=== PATIENT | male | born 1970 | race Caucasian/White ===

== ENCOUNTER → 2022-02-08 13:32 | Outpatient (BNVA) | payer SELFPAY | PROVIDERS: Visit Provider Physician Assistant Medical | DX: Z02.79 Encounter for issue of other medical certificate (principal) ==

== ENCOUNTER 2022-06-18 23:44 | Inpatient (IN) | payer MEDICAID, SELFPAY ==
--- NOTE | ~2022-06-18 | CT_ITS ---
EXAMINATION: CT ANGIOGRAM HEAD AND NECK CLINICAL INFORMATION: Near hanging. Rule out dissection. COMPARISON: None TECHNIQUE: Test bolus sequences followed by intravenous administration 70 mL of Omnipaque 350 intravenous contrast. Helical imaging was performed in the axial plane from the mediastinum to the skull vertex. Delayed postcontrast imaging of the head was also performed. The data was processed at the hematology technologist's workstation for generation of MIP sequences. Three-dimensional volume rendered reformatted images were also generated at an offline 3-D workstation. This CT examination was performed using dose optimization techniques as appropriate, variously including the following: *Automated exposure control *Adjustment of mA and/or kV according to patient size (this includes techniques or standardized protocols for targeted exams where dose is matched to indication/reason for exam; i.e. extremities or head) *Use of iterative reconstruction technique The degree of stenosis determined by NASCET criteria. DLP: 2779 mGy-cm FINDINGS: BONES, SOFT TISSUES AND LUNG APICES: No cervical spine fracture or traumatic malalignment. 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 No obvious epidural or paraspinal hematoma. Moderate bronchial thickening without bronchiectasis. Paraspinal soft tissues unremarkable. CTA NECK: The aortic arch has a classic configuration and the major arch vessel origins are non-stenotic. The vertebral arteries are co-dominant and both vertebral origins are widely patent. Both common carotid arteries are normal in course and caliber. Both internal carotid arteries demonstrate minimal atherosclerotic plaque without significant stenosis. CTA HEAD: There is normal opacification of the major intracranial vessels. No acute proximal large vessel occlusion, focal flow-limiting stenosis, or saccular intracranial aneurysm is identified. No abnormal parenchymal enhancement or regional oligemia is visualized. HEAD (delayed): No intracranial mass, intercerebral edema, hemorrhage, or midline shift is evident. The ventricles and sulci are stable in size and configuration. No extra-axial collections are appreciated. No pathologic intracranial enhancement. Dural sinuses are patent. The paranasal sinuses are well-aerated and clear. CT/CT angio head neck IMPRESSION: * No evidence of dissection. * No occlusion or hemodynamically significant stenosis within the extracranial or intracranial arterial vasculature.
[2022-06-18 23:57] VITALS: BP 127/79; PULSE 85; RESP 16; TEMP 36.6; O2SAT 96; BMI 31.6
--- NOTE | 2022-06-19 00:20 | ED.PSYCH ---
HPI - Psych General Chief Complaint: Psychiatric Symptoms Stated Complaint: SI,CARBAJAL ON NECK,FOUND ON FLOOR BY PER EMS Time Seen by Provider: 06/18/22 23:51 Source: patient and EMS Mode of arrival: EMS Limitations: no limitations History of Present Illness HPI Narrative: 51-year-old male brought to emergency department for evaluation of a near hanging event that occurred at home. At the time my evaluation, the patient denies being suicidal and he denies that he attempted to hang himself. I reviewed the external record: Section 12 and the following information was noted ?Alberto was found unconscious with a rope around his neck held to the rafters, by his girlfriend. Alberto's girlfriend removed the rope and called 911. ? The patient told me that he was was drinking in his basement bar . He had 4-5 beers to drink. He then states the fell asleep on the bar. When he woke up he was on the floor surrounded by paramedics and police. Related Data Home Medications Medication Instructions Recorded Confirmed No Known Home Meds 06/19/22 06/19/22 Allergies Allergy/AdvReac Type Severity Reaction Status Date / Time No Known Allergies Allergy Unverified 03/05/20 15:03 [No Known Allergies*] Review of Systems Review of Systems: Yes all other systems are reviewed and are negative [facility] Social History Social History Advance Directives: No Physical Exam Vital Signs: Vital Signs: Last Vital Signs Temp 97.9 F 06/18/22 23:57 Pulse 85 06/18/22 23:57 Resp 16 06/18/22 23:57 BP 127/79 06/18/22 23:57 Pulse Ox 96 06/18/22 23:57 O2 Del Method 06/18/22 23:57 BMI result Body Mass Index 31.6 Const: General: cooperative and no acute distress Orientation/consciousness: oriented to person and oriented to place Limitations: no limitations HEENT: Head: Yes normal to inspection, Yes normocephalic and Yes atraumatic Ears: external ears normal General nose exam: Normal external nose present Face and sinus: Yes normal facial exam Mouth: Normal oral and palatal mucosa present Throat: Yes posterior oropharynx normal Eyes: General: appearance normal, both eyes and all related structures Pupils: Equal, round and reactive pupils present Neck: Other: The patient has ligature/rope burn carbajal on his neck, these areas are tender to palpation. His trachea is midline and nontender. There is no stridor with auscultation of his neck. Carotid artery pulse is bilaterally symmetric. Patient's voice is normal. Chest: Chest palpation & inspection: normal inspection of the chest and normal palpation of entire chest wall Resp: Effort & Inspection: normal respiratory effort and able to speak in complete sentences Auscultation: clear to auscultation bilaterally Cardio: Rate: regular rate Rhythm: regular rhythm Heart sounds: S1 normal heart sound present, S2 normal heart sound present and no murmurs GI: Inspection: Yes normal to inspection Palpation (GI): Soft to palpation, nontender and no guarding Auscultation: normal bowel sounds : General: Yes no CVA tenderness Back/Spine/Pelvis: Back: no CVA tenderness Skin: General skin exam: no rashes or lesions noted Neuro: General: oriented to person and oriented to place Cranial nerves: Yes CN's II-XII intact bilaterally and Yes Equal, round and reactive pupils present Cognition (Neuro): normal cognition Motor exam (neuro): 5/5 motor strength present throughout Extrem: General: Yes normal to inspection Psych: Appearance: grossly normal Speech and movement: Normal speech and movement present Affect: normal affect Attitude: cooperative Thought process: Normal thought process present Thought content: Normal thought content present Medications Administered Discontinued Medications Generic Name Dose Route Start Last Admin Trade Name Gautamq PRN Reason Stop Dose Admin Iohexol 70 ml 06/19/22 02:45 06/19/22 02:46 Iohexol 350 Mg/Ml 100 Ml Infus..Btl IV 06/19/22 02:46 70 ml ONCE ONE Administration Medical Decision Making Medical Decision Making [facility] Narrative: 51-year-old male who was brought to emergency department by EMS for near hanging that occurred in his basement. The patient was found unresponsive on his basement floor with a rope around his neck tied to the rafters. The patient was found by his girlfriend. Patient was placed on a Section 12 and transported to the emergency department. At the time my evaluation the patient denies that he tried to kill himself and denies that he tried to hang himself. Patient's physical examination however is very concerning since he has clear ligature carbajal on his neck which are consistent with rope finch. His exam is otherwise unremarkable. Given the fact that this is a near hanging I will obtain a CT scan of the patient's head and cervical spine as well as CT angiogram of the patient's neck to rule out dissection of the carotid and vertebral arteries. Laboratory evaluation including CBC, CMP, salicylate, Tylenol, alcohol, magnesium, PT/INR, PTT, urinalysis and urine drug screen will be obtained. Patient is currently on a Section 12 and this will remain until he can be evaluated by our crisis care team. 0416: Start physician observation: Patient's laboratory evaluation was unremarkable except for an alcohol level of 69. COVID-[address] angiogram of the head and neck revealed no dissections and no bony abnormalities. The patient is medically cleared for psychiatric evaluation. The patient does have significant evidence for a suicide attempt by hanging given the ligature carbjaal on his neck. Patient will be kept in the Behavioral Health Unit until he is evaluated by our care team. 0700: Physician observation continued: Patient has remained stable in the emergency department Behavioral Health Unit. At the end of my shift, the patient's care was turned over to my colleague, Dr. Gilliam. Differential Diagnosis Depression, anxiety, suicidal ideation near hanging, laryngeal injury, carotid dissection, vertebral dissection, overdose, alcohol intoxication Lab Data Result Diagrams: 06/19/22 03:20 06/19/22 03:20 Labs: Lab Results 06/19/22 06/19/22 06/19/22 Range/Units 00:10 00:11 00:11 WBC (4.8-10.8) X10*3/uL RBC (4.60-5.80) X10*6/uL Hgb (14.0-18.0) g/dl Hct (42.0-52.0) % MCV (80.0-98.0) fL MCH (27.0-33.0) pg MCHC (31.0-36.0) g/dl RDW (11.0-16.0) % Plt Count (160-400) X10*3/uL MPV (9.4-12.4) fL Immature Gran % (Auto) (0.0-0.4) % Neut % (Auto) (45-73) % Lymph % (Auto) (20-40) % [place] % (Auto) (2-11) % Eos % (Auto) (0-4) % Baso % (Auto) (0-2) % Lymph # (Auto) (1.2-4.9) X10*3/uL [place] # (Auto) (0.1-1.2) X10*3/uL Eos # (Auto) (0.0-0.4) X10*3/uL Baso # (Auto) (0.0-0.2) X10*3/uL Abs Immat Gran (auto) (0.00-0.03) X10*3/uL Absolute Neuts (auto) (2.0-8.3) x10*3/uL Absolute Nucleated RBC (0.0-0.012) X10*3/uL Nucleated RBC % (auto) (0.0-0.2) /100WBC PT (10.0-13.1) SEC INR (0.9-1.1) APTT (26.0-36.4) SEC Sodium (135-145) mmol/L Potassium (3.3-5.1) mmol/L Chloride (96-108) mmol/L Carbon Dioxide (22-29) mmol/L Anion Gap (12-20) BUN (9-16) mg/dL Creatinine (0.5-1.4) mg/dL Estim Creat Clear Calc Estimated GFR Random Glucose (60-115) mg/dL Calcium (8.4-10.2) mg/dL Magnesium (1.6-2.6) mg/dL Total Bilirubin (0.0-1.0) mg/dL AST (5-37) U/L ALT (0-40) U/L Alkaline Phosphatase (39-117) U/L Total Protein (6.5-8.0) g/dL Albumin (3.5-5.0) g/dL Urine Color Yellow Urine Appearance Clear Urine pH 5.5 (5.0-9.0) Ur Specific [place] <= 1.005 (1.005-1.025) Urine Protein Negative (Neg-Trace) mg/dL Urine Glucose (UA) Negative (Negative) mg/dL Urine Ketones Negative (Negative) mg/dL Urine Blood Negative (Negative) Urine Nitrite Negative (Negative) Ur Leukocyte Esterase Negative (Negative) Salicylates (15-30) mg/dL Urine Opiates Screen Not Detected (Not Detect) Urine Fentanyl Screen Not Detected (Not Detect) Acetaminophen (<30) mcg/mL Ur Barbiturates Screen Not Detected (Not Detect) Ur Phencyclidine Scrn Not Detected (Not Detect) Ur Amphetamines Screen Not Detected (Not Detect) U Benzodiazepines Scrn Not Detected (Not Detect) Urine Cocaine Screen Not Detected (Not Detect) U Marijuana (THC) Screen Not Detected (Not Detect) Ethyl Alcohol mg/dL COVID-19 (TRAY) Negative (Negative) COVID-19 Clin Com See Note 06/19/22 06/19/22 06/19/22 Range/Units 03:20 03:20 03:20 WBC 6.2 (4.8-10.8) X10*3/uL RBC 4.59 L (4.60-5.80) X10*6/uL Hgb 15.3 (14.0-18.0) g/dl Hct 42.7 (42.0-52.0) % MCV 93.0 (80.0-98.0) fL MCH 33.3 H (27.0-33.0) pg MCHC 35.8 (31.0-36.0) g/dl RDW 11.9 (11.0-16.0) % Plt Count 195 (160-400) X10*3/uL MPV 8.7 L (9.4-12.4) fL Immature Gran % (Auto) 0.3 (0.0-0.4) % Neut % (Auto) 49.0 (45-73) % Lymph % (Auto) 42.0 H (20-40) % [place] % (Auto) 7.0 (2-11) % Eos % (Auto) 1.5 (0-4) % Baso % (Auto) 0.2 (0-2) % Lymph # (Auto) 2.6 (1.2-4.9) X10*3/uL [place] # (Auto) 0.4 (0.1-1.2) X10*3/uL Eos # (Auto) 0.1 (0.0-0.4) X10*3/uL Baso # (Auto) 0.0 (0.0-0.2) X10*3/uL Abs Immat Gran (auto) 0.02 (0.00-0.03) X10*3/uL Absolute Neuts (auto) 3.0 (2.0-8.3) x10*3/uL Absolute Nucleated RBC 0.000 (0.0-0.012) X10*3/uL Nucleated RBC % (auto) 0.0 (0.0-0.2) /100WBC PT (10.0-13.1) SEC INR (0.9-1.1) APTT (26.0-36.4) SEC Sodium 139 (135-145) mmol/L Potassium 4.4 (3.3-5.1) mmol/L Chloride 106 (96-108) mmol/L Carbon Dioxide 21 L (22-29) mmol/L Anion Gap 16 (12-20) BUN 11 (9-16) mg/dL Creatinine 0.72 (0.5-1.4) mg/dL Estim Creat Clear Calc 153.5 Estimated GFR > 60 Random Glucose 96 (60-115) mg/dL Calcium 9.5 (8.4-10.2) mg/dL Magnesium 2.0 (1.6-2.6) mg/dL Total Bilirubin 0.4 (0.0-1.0) mg/dL AST 23 (5-37) U/L ALT 29 (0-40) U/L Alkaline Phosphatase 73 (39-117) U/L Total Protein 7.3 (6.5-8.0) g/dL Albumin 4.5 (3.5-5.0) g/dL Urine Color Urine Appearance Urine pH (5.0-9.0) Ur Specific [place] (1.005-1.025) Urine Protein (Neg-Trace) mg/dL Urine Glucose (UA) (Negative) mg/dL Urine Ketones (Negative) mg/dL Urine Blood (Negative) Urine Nitrite (Negative) Ur Leukocyte Esterase (Negative) Salicylates < 5.0 L (15-30) mg/dL Urine Opiates Screen (Not Detect) Urine Fentanyl Screen (Not Detect) Acetaminophen < 1 (<30) mcg/mL Ur Barbiturates Screen (Not Detect) Ur Phencyclidine Scrn (Not Detect) Ur Amphetamines Screen (Not Detect) U Benzodiazepines Scrn (Not Detect) Urine Cocaine Screen (Not Detect) U Marijuana (THC) Screen (Not Detect) Ethyl Alcohol 69 mg/dL COVID-19 (TRAY) (Negative) COVID-19 Clin Com 06/19/22 Range/Units 03:20 WBC (4.8-10.8) X10*3/uL RBC (4.60-5.80) X10*6/uL Hgb (14.0-18.0) g/dl Hct (42.0-52.0) % MCV (80.0-98.0) fL MCH (27.0-33.0) pg MCHC (31.0-36.0) g/dl RDW (11.0-16.0) % Plt Count (160-400) X10*3/uL MPV (9.4-12.4) fL Immature Gran % (Auto) (0.0-0.4) % Neut % (Auto) (45-73) % Lymph % (Auto) (20-40) % [place] % (Auto) (2-11) % Eos % (Auto) (0-4) % Baso % (Auto) (0-2) % Lymph # (Auto) (1.2-4.9) X10*3/uL [place] # (Auto) (0.1-1.2) X10*3/uL Eos # (Auto) (0.0-0.4) X10*3/uL Baso # (Auto) (0.0-0.2) X10*3/uL Abs Immat Gran (auto) (0.00-0.03) X10*3/uL Absolute Neuts (auto) (2.0-8.3) x10*3/uL Absolute Nucleated RBC (0.0-0.012) X10*3/uL Nucleated RBC % (auto) (0.0-0.2) /100WBC PT 11.3 (10.0-13.1) SEC INR 1.0 (0.9-1.1) APTT 32.9 (26.0-36.4) SEC Sodium (135-145) mmol/L Potassium (3.3-5.1) mmol/L Chloride (96-108) mmol/L Carbon Dioxide (22-29) mmol/L Anion Gap (12-20) BUN (9-16) mg/dL Creatinine (0.5-1.4) mg/dL Estim Creat Clear Calc Estimated GFR Random Glucose (60-115) mg/dL Calcium (8.4-10.2) mg/dL Magnesium (1.6-2.6) mg/dL Total Bilirubin (0.0-1.0) mg/dL AST (5-37) U/L ALT (0-40) U/L Alkaline Phosphatase (39-117) U/L Total Protein (6.5-8.0) g/dL Albumin (3.5-5.0) g/dL Urine Color Urine Appearance Urine pH (5.0-9.0) Ur Specific [place] (1.005-1.025) Urine Protein (Neg-Trace) mg/dL Urine Glucose (UA) (Negative) mg/dL Urine Ketones (Negative) mg/dL Urine Blood (Negative) Urine Nitrite (Negative) Ur Leukocyte Esterase (Negative) Salicylates (15-30) mg/dL Urine Opiates Screen (Not Detect) Urine Fentanyl Screen (Not Detect) Acetaminophen (<30) mcg/mL Ur Barbiturates Screen (Not Detect) Ur Phencyclidine Scrn (Not Detect) Ur Amphetamines Screen (Not Detect) U Benzodiazepines Scrn (Not Detect) Urine Cocaine Screen (Not Detect) U Marijuana (THC) Screen (Not Detect) Ethyl Alcohol mg/dL COVID-19 (TRAY) (Negative) COVID-19 Clin Com Discharge Plan Discharge Clinical Impression: Suicide attempt by hanging Patient Disposition: Still a Patient Prescriptions: No Action No Known Home Meds Interventions: [place]-Suicide Risk Severity Scale Last Done: 06/19/22 06:07
[2022-06-19 00:21] LABS: Appearance Urine Clear; Color Urine Yellow; Glucose Urine UA Negative (Negative); Leukocyte Esterase Urine Negative (Negative); Nitrite Urine Negative (Negative); PH 5.5 (5.0-9.0); Specific Gravity - Urine <= 1.005 (1.005-1.025); Urine Blood Negative (Negative); Urine Ketones Negative (Negative); Urine Protein Negative (Neg-Trace)
[2022-06-19 00:28] LABS: COVID-19 Test Negative (Negative); IDNOW Serial# BCCEAD1C
[2022-06-19 00:32] LABS: Amphetamine Screen Urine Not Detected (Not Detect); Barbiturates, Urine Not Detected (Not Detect); Benzodiazepines Screen Urine Not Detected (Not Detect); Cannabinoid Screen Urine Not Detected (Not Detect); Cocaine Screen Urine Not Detected (Not Detect); Fentanyl, urine Not Detected (Not Detect); Opiate Screen Urine Not Detected (Not Detect); Phencyclidine Screen Urine Not Detected (Not Detect)
[2022-06-19] MEDS: iohexoL 350 MG/ML 100 ML INFUS..BTL 70 ML IV (02:46)
[2022-06-19 03:25] LABS: MANUAL DIFF FLAG NO
[2022-06-19 03:26] LABS: Basophils Percent Auto 0.2 % (0-2); Eosinophils Absolute Auto 0.1 X10*3/uL (0.0-0.4); Eosinophils Percent Auto 1.5 % (0-4); Hematocrit 42.7 % (42.0-52.0); Hemoglobin 15.3 g/dl (14.0-18.0); Imm Gran Abs Auto 0.02 X10*3/uL (0.00-0.03); Imm Gran Pct Auto 0.3 % (0.0-0.4); Lymphocytes Absolute Auto 2.6 X10*3/uL (1.2-4.9); Mean Corpuscular HGB Conc 35.8 g/dl (31.0-36.0); Mean Corpuscular Hemoglobin 33.3 pg (27.0-33.0); Mean Platelet Volume 8.7 fL (9.4-12.4); Monocytes Absolute Auto 0.4 X10*3/uL (0.1-1.2); Platelet Count 195 X10*3/uL (160-400); Red Blood Count 4.59 X10*6/uL (4.60-5.80); Red Cell Distribution Width 11.9 % (11.0-16.0); White Blood Count 6.2 X10*3/uL (4.8-10.8)
[2022-06-19 03:34] LABS: Prothrombin Time 11.3 SEC (10.0-13.1)
[2022-06-19 03:37] LABS: Partial Thromboplastin Time 32.9 SEC (26.0-36.4)
[2022-06-19 03:48] LABS: Acetaminophen LAB < 1 mcg/mL (<30); Alanine Aminotransferase 29 U/L (0-40); Albumin Level 4.5 g/dL (3.5-5.0); Alkaline Phosphatase 73 U/L (39-117); Anion Gap 16 (12-20); Aspartate Amino Transferase 23 U/L (5-37); Bilirubin Total 0.4 mg/dL (0.0-1.0); Blood Urea Nitrogen 11 mg/dL (9-16); Calcium 9.5 mg/dL (8.4-10.2); Carbon Dioxide 21 mmol/L (22-29); Chloride 106 mmol/L (96-108); Creatinine Clr Calc Pharmacy 153.5; Estimated Glomerular Filt Rate > 60; Ethanol 69 mg/dL; Glucose Random 96 mg/dL (60-115); Potassium 4.4 mmol/L (3.3-5.1); Salicylate < 5.0 mg/dL (15-30); Sodium 139 mmol/L (135-145); Total Protein 7.3 g/dL (6.5-8.0)
--- NOTE | 2022-06-19 06:50 | PC.NURSE ---
Patient slept through the night, no distress observed/reported, behavior non concerning, CT head and neck unremarkable, care team consult ordered/pending evaluation, med rec completed/patient is currently not on any home medication, will continue to monitor.
--- NOTE | 2022-06-19 08:01 | PC.NURSE ---
pt seen by care team (kimo) pt aware of plan of care.
[2022-06-19 08:42] VITALS: BP 116/68; PULSE 86; RESP 17; TEMP 37.2; O2SAT 95
--- NOTE | 2022-06-19 09:10 | PC.NURSE ---
pt is a/o x 4 no sob/araceli noted speaks in full sentences. pt denies any si/hi. pt aware of plan of care.
[2022-06-19 14:41] VITALS: BP 129/72; PULSE 94; RESP 17; TEMP 36.7; O2SAT 97
[2022-06-20 03:09] VITALS: BP 127/70; PULSE 90; RESP 17; TEMP 36.8; O2SAT 98
--- NOTE | 2022-06-20 06:18 | PC.NURSE ---
Patient slept through the night, no distress observed/reported, behavior non concerning, disposition per care team is section 12 inpatient bed search, med rec completed/patient is currently not on any home medication, VSS, will continue to monitor.
--- NOTE | 2022-06-20 07:51 | PC.NURSE ---
patient appears to remain at rest at present respirations are even and unlabored patient appears in no distress
[2022-06-20 13:12] VITALS: BP 126/69; PULSE 70; RESP 15; TEMP 36.9; O2SAT 98
--- NOTE | 2022-06-20 14:02 | PM.EVENT ---
Event Note Date of Service: 06/20/22 Event Note: Pt in the ER. Refuses to sign in for treatment post suicide attempt. Brief meeting with pt to discuss 12B vs Section X. Pt reports he needs to go to work, has things to do, has no time for this. Reports this was not an attempt on his life, but a type of practical joke. Discussed with pt that given just the physical evidence resulting from his action, that this raises the highest of concerns regarding his safety and we will need some time to address the issues and assess for safety and further risk. Discussed that his actions were not taken by the team as a joke, but as a serious indication that he was in need of some assistance. Assured pt we would attempt to develop a plan of care which will be of assistance for current issues. Time Spent With Patient Time: Total time managing care of this patient today __20__ minutes.
[2022-06-20 16:43] VITALS: BP 145/83; PULSE 75; RESP 16; TEMP 36.6; O2SAT 98
[2022-06-20 16:47] VITALS: BP 143/80
--- NOTE | 2022-06-20 17:30 | PC.NURSE ---
Pt refuses flu vaccine.
[2022-06-20 18:00] VITALS: BP 140/79; PULSE 72; RESP 16; TEMP 36.6; O2SAT 96
--- NOTE | 2022-06-20 18:13 | PC.ADMIT ---
Alberto was admitted to M[facility] at 1643 from [facility] on a 12b for treatment of Unspecified depressive disorder. Once on the unit, pt signed a CV and 3-day notice.? Precipitant of admission includes girlfriend finding pt with a rope around his neck with one end attached to a rafter. Pt sts he was indulging one last time in alcohol before the new year, had 11-12 beers and would never try to end his life. He sts he was planning to separate the work area and rec area in his basement with a privacy curtain and the rope was to be used to hang the privacy curtain. Pt is A&O, INAD, pleasant and cooperative, responds appropriately with some delay but appears to give thoughtful answers. He became tearful once when signing the consent for his daughter to be able to speak with [facility]. Mood is depressed and anxious with congruent affect. Pt dns SI/HI/AH/VH/pain/safety concerns. Thought process is linear, may be thought blocking. Pt reports good appetite, no recent weight loss or gain. Pt has been unemployed and sts he was going to start a new job today. He worked as a truck despatcher and reported sleep was not consistent then but has been good when not working. Focus appears appropriate. Substance issues: Pt reports drinking only when he does not have to work the next day but has a long period of unemployment so may have been drinking more than the once/week stated. He last drank New Year?s efrem when he reports he had 11-12 beers. Denies hx of w/d symptoms or seizures. Pt does not have insurance, does not see any regular providers, and reports no medical issues. He is a 2 PPD smoker, which he said he also planned to quit after New Year?s efrem, and says his biggest concern relates to not smoking. He refuses nicotine replacement. Safety checks: Q 15
[2022-06-21 08:45] VITALS: BP 139/69; PULSE 79; RESP 18; TEMP 36.5; O2SAT 95
[2022-06-21 09:26] LABS: Estimated Average Glucose 100 mg/dL; Hemoglobin A1c % 5.1 %
[2022-06-21 09:52] LABS: Cholesterol 231 mg/dL; HDL Cholesterol 46 mg/dL; LDL Cholesterol Calculated 145 mg/dl; Triglycerides 202 mg/dL
[2022-06-21 10:12] LABS: Free T4 (Free Thyroxine) 0.95 ng/dL (0.71-1.85); Thyroid Stimulating Hormone 2.84 uIU/mL (0.32-4.0)
[2022-06-21 10:22] LABS: Folate 13.2 ng/mL (> or = 4.0); Vitamin B12 545 pg/mL (200-900)
--- NOTE | 2022-06-21 11:24 | HO.PSYADMNOT ---
HPI Date of Service: 06/21/22 Chief Complaint: reported Suicide Attempts by Hanging Sources of Information: patient interviewed and crisis/core team assessment reviewed HPI Subjective Notes: [place]bride Warning and Section 12B Narrative: The patient is a 48-year-old male who reportedly was found by his girlfriend of 6 years who he lives with to be hanging in the basement and unconscious. The patient denies that he made a suicide attempt he states he had 7 years Alesia resolution to stop drinking stop smoking and that he had drank too much and was doing things in the basement involving his game room and reportedly became entangled but the patient has a blackout for a period of time. There had been some argument earlier in the night with his girlfriend but he denies ongoing depressive symptoms or thoughts of self-harm. He was brought in by the police and ambulance there were hilliard on his neck but on examination and CT scan no significant physical findings were noted. The patient states that he supports his girlfriend and her 2 children he works truck driving he does admit to binge drinking but denies ongoing blackouts withdrawal symptoms or other behavioral problems or difficulties secondary to this. He does not really have a clear explanation for what happened but denies that he was having suicidal thoughts or the present time since admission has had suicidal thoughts he denies any psychiatric history see sw note Past Psychiatric History: denies Medical Evaluation Reviewed: Yes ct and physical findings negative [facility] Family History: Unknown at this time Social History: Patient works as a truck driving local deliveries lives with his girlfriend Cassy in of 6 years for He does state that her former had suicided Substance History: binge drinking alcohol denies hx of blackouts dui or detox Diagnostics Vital Signs (24Hr): Vital Signs - 24 hr 06/20/22 13:12 06/20/22 16:43 06/20/22 16:47 Temperature 98.4 F 97.8 F Pulse Rate 70 75 Respiratory Rate 15 16 Blood Pressure 126/69 145/83 H 143/80 H Pulse Oximetry 98 98 Oxygen Delivery Method Room Air Room Air 06/20/22 18:00 06/21/22 08:45 Temperature 97.8 F 97.7 F Pulse Rate 72 79 Respiratory Rate 16 18 Blood Pressure 140/79 H 139/69 Pulse Oximetry 96 95 Oxygen Delivery Method Room Air Room Air BMI result Body Mass Index 31.6 Labs Results: 06/19/22 03:20 06/19/22 03:20 Labs: Laboratory Results - last 48 hr 06/21/22 06/21/22 06/21/22 08:53 08:53 08:53 Estimat Average Glucose 100 Hemoglobin A1c % 5.1 Triglycerides 202 Cholesterol 231 LDL Cholesterol, Calc 145 HDL Cholesterol 46 Vitamin B12 545 Folate 13.2 TSH 2.84 Free T4 0.95 Imaging Radiology Impressions: ITS Impressions Head/Neck CTA 06/19/22 02:53 IMPRESSION: * No evidence of dissection. * No occlusion or hemodynamically significant stenosis within the extracranial or intracranial arterial vasculature. Meds/Allergies Meds Home Medications Medication Instructions Recorded Confirmed Type No Known Home Meds 06/19/22 06/19/22 History Allergies Allergies Allergy/AdvReac Type Severity Reaction Status Date / Time No Known Allergies Allergy Unverified 03/05/20 15:03 [No Known Allergies*] Mental Status Exam Mental Status Exam Patient Appearance: Well Grooomed Patient Orientation: Person, Place, Time and Situation Level of Consciousness: Awake and Alert Patient Behavior: Appropriate Mood Description: Calm, Anxious and Apprehensive Affect Description: Appropriate, Constricted and Apprehensive Ability to Follow Directions: Good Speech Pattern: Clear Memory Description: Recent Impaired Hallucinations: None Delusions: Not Present Thought Process: Intact and Evasive Thought Content: positive for Linear, negative for Suicidal Ideation or negative for Homicidal Ideation Judgement: Fair Judgement and Insight: pt guarded ? evasive vs true blackout denies plan or intent for harm to self or others unclear trigger or if behavoir was intentional no plan Assessment & Plan Assessment & Plan (1) Onset of alcohol-induced mood disorder during intoxication: Status: Acute Code(s): F10.929 - Alcohol use, unspecified with intoxication, unspecified; F10.94 - Alcohol use, unspecified with alcohol-induced mood disorder (2) Hanging, undetermined whether accidentally or purposely inflicted: Status: Acute Code(s): T71.164A - Asphyxiation due to hanging, undetermined, initial encounter Plan s/p recent reported hanging event no clear sequelae pt denies plan or intent partner denies current concern explained current legal status although concerning re event does not appear intentional clarify home sityuation financial work etc refusing referrals Urine drug screen was negative unremarkable labs clarify home situation Patient educated on: substance abuse Informed Consent: further education needed Reason for continued inpatient stay Substantial Risk for: harm to self Statement Statement: I have reviewed the history and physical and performed a pertinent examination on my patient. No changes have occurred unless specified. If the History and Physical was not performed prior to admission, the Hospitalist's service will be consulted for completing the admission physical. Time Spent With Patient Time: Total time managing care of this patient today ____ minutes.
--- NOTE | 2022-06-21 16:06 | PC.NURSE ---
Care assumed by ANNELISE Quiroz
[2022-06-22 08:15] VITALS: BP 124/75; PULSE 68; RESP 18; TEMP 36.6; O2SAT 97
--- NOTE | 2022-06-22 18:14 | PM.PSYDC ---
DS: Providers Provider Date of Service: 06/22/22 Date of admission: 06/20/22 13:35 Date of discharge: 06/22/22 Primary care physician: None Physician Attending physician on admission: Zeus Kay Consults: [facility] [place] [address] Emergency Department NoteSigned with Adalberto Patient: Alberto Salinas EMR#: [id number]: [id number]:[id number]/Sex: 51 / MADM Date: 06/19/22Loc:HO.ED Date of Service: 06/18/22Attending Dr: cc: Physician,None ~ ADDENDUMContinue physician observation, patient is a Section 12/inpatient bed search after attempted hanging. There were no acute events overnight and no medications to be signed for. Addendum Dictated By:Joanne Juarez Signed By:Addendum Cosigned By:DD/ TD/TT: 06/20/2208/11/1034 ADDENDUM51-year-old male with brought in after had a near hanging event, patient witnessed by his girlfriend having the rope around his neck with evidence of ligature burn carbajal around his neck seen by care team patient will be bed search and the potential inpatient psych admission, patient is on eventual now, no other issues. Will continue with physician observation. Bed search process is underway. Addendum Dictated By:Joanne Gardner Signed By:Addrituum Cosigned By:DD/ TD/TT: 06/19/2207/11/818 HPI - Psych General Chief Complaint: Psychiatric Symptoms Stated Complaint: SI,CARBAJAL ON NECK,FOUND ON FLOOR BY PER EMS Time Seen by Provider: 06/18/22 23:51 Source: patient and EMS Mode of arrival: EMS Limitations: no limitations History of Present Illness HPI Narrative: 51-year-old male brought to emergency department for evaluation of a near hanging event that occurred at home. At the time my evaluation, the patient denies being suicidal and he denies that he attempted to hang himself. I reviewed the external record: Section 12 and the following information was noted ?Alberto was found unconscious with a rope around his neck held to the rafters, by his girlfriend. Alberto's girlfriend removed the rope and called 911. ? The patient told me that he was was drinking in his basement bar . He had 4-5 beers to drink. He then states the fell asleep on the bar. When he woke up he was on the floor surrounded by paramedics and police. Related Data Home Medications Medication Instructions Recorded Confirmed No Known Home Meds 06/19/22 06/19/22 Allergies Allergy/AdvReac Type Severity Reaction Status Date / Time No Known Allergies Allergy Unverified 03/05/20 15:03 [No Known Allergies*] Review of Systems Review of Systems: Yes all other systems are reviewed and are negative [facility] Social History Social History Advance Directives: No Physical Exam Vital Signs: Vital Signs: Last Vital Signs Temp 97.9 F 06/18/22 23:57 Pulse 85 06/18/22 23:57 Resp 16 06/18/22 23:57 BP 127/79 06/18/22 23:57 Pulse Ox 96 06/18/22 23:57 O2 Del Method 06/18/22 23:57 BMI result Body Mass Index 31.6 Const: General: cooperative and no acute distress Orientation/consciousness: oriented to person and oriented to place Limitations: no limitations HEENT: Head: Yes normal to inspection, Yes normocephalic and Yes atraumatic Ears: external ears normal General nose exam: Normal external nose present Face and sinus: Yes normal facial exam Mouth: Normal oral and palatal mucosa present Throat: Yes posterior oropharynx normal Eyes: General: appearance normal, both eyes and all related structures Pupils: Equal, round and reactive pupils present Neck: Other: The patient has ligature/rope burn carbajal on his neck, these areas are tender to palpation. His trachea is midline and nontender. There is no stridor with auscultation of his neck. Carotid artery pulse is bilaterally symmetric. Patient's voice is normal. document embedded image document embedded image Chest: Chest palpation & inspection: normal inspection of the chest and normal palpation of entire chest wall Resp: Effort & Inspection: normal respiratory effort and able to speak in complete sentences Auscultation: clear to auscultation bilaterally Cardio: Rate: regular rate Rhythm: regular rhythm Heart sounds: S1 normal heart sound present, S2 normal heart sound present and no murmurs GI: Inspection: Yes normal to inspection Palpation (GI): Soft to palpation, nontender and no guarding Auscultation: normal bowel sounds : General: Yes no CVA tenderness Back/Spine/Pelvis: Back: no CVA tenderness Skin: General skin exam: no rashes or lesions noted Neuro: General: oriented to person and oriented to place Cranial nerves: Yes CN's II-XII intact bilaterally and Yes Equal, round and reactive pupils present Cognition (Neuro): normal cognition Motor exam (neuro): 5/5 motor strength present throughout Extrem: General: Yes normal to inspection Psych: Appearance: grossly normal Speech and movement: Normal speech and movement present Affect: normal affect Attitude: cooperative Thought process: Normal thought process present Thought content: Normal thought content present Medications Administered Discontinued Medications Generic Name Dose Route Start Last Admin Trade Name Freq PRN Reason Stop Dose Admin Iohexol 70 ml 06/19/22 02:45 06/19/22 02:46 Iohexol 350 Mg/Ml 100 Ml Infus..Btl IV 06/19/22 02:46 70 ml ONCE ONE Administration Medical Decision Making Medical Decision Making MDM Narrative: 51-year-old male who was brought to emergency department by EMS for near hanging that occurred in his basement. The patient was found unresponsive on his basement floor with a rope around his neck tied to the rafters. The patient was found by his girlfriend. Patient was placed on a Section 12 and transported to the emergency department. At the time my evaluation the patient denies that he tried to kill himself and denies that he tried to hang himself. Patient's physical examination however is very concerning since he has clear ligature carbajal on his neck which are consistent with rope finch. His exam is otherwise unremarkable. Given the fact that this is a near hanging I will obtain a CT scan of the patient's head and cervical spine as well as CT angiogram of the patient's neck to rule out dissection of the carotid and vertebral arteries. Laboratory evaluation including CBC, CMP, salicylate, Tylenol, alcohol, magnesium, PT/INR, PTT, urinalysis and urine drug screen will be obtained. Patient is currently on a Section 12 and this will remain until he can be evaluated by our crisis care team. 0416: Start physician observation: Patient's laboratory evaluation was unremarkable except for an alcohol level of 69. COVID-[address] angiogram of the head and neck revealed no dissections and no bony abnormalities. The patient is medically cleared for psychiatric evaluation. The patient does have significant evidence for a suicide attempt by hanging given the ligature carbajal on his neck. Patient will be kept in the Behavioral Health Unit until he is evaluated by our care team. 0700: Physician observation continued: Patient has remained stable in the emergency department Behavioral Health Unit. At the end of my shift, the patient's care was turned over to my colleague, Dr. Gilliam. Differential Diagnosis Depression, anxiety, suicidal ideation near hanging, laryngeal injury, carotid dissection, vertebral dissection, overdose, alcohol intoxication Lab Data Result Diagrams: 06/19/22 03:20 document embedded image 06/19/22 03:20 document embedded image Labs: Lab Results 06/19/22 06/19/22 06/19/22 Range/Units 00:10 00:11 00:11 WBC (4.8-10.8) X10*3/uL RBC (4.60-5.80) X10*6/uL Hgb (14.0-18.0) g/dl Hct (42.0-52.0) % MCV (80.0-98.0) fL MCH (27.0-33.0) pg MCHC (31.0-36.0) g/dl RDW (11.0-16.0) % Plt Count (160-400) X10*3/uL MPV (9.4-12.4) fL Immature Gran % (Auto) (0.0-0.4) % Neut % (Auto) (45-73) % Lymph % (Auto) (20-40) % [place] % (Auto) (2-11) % Eos % (Auto) (0-4) % Baso % (Auto) (0-2) % Lymph # (Auto) (1.2-4.9) X10*3/uL [place] # (Auto) (0.1-1.2) X10*3/uL Eos # (Auto) (0.0-0.4) X10*3/uL Baso # (Auto) (0.0-0.2) X10*3/uL Abs Immat Gran (auto) (0.00-0.03) X10*3/uL Absolute Neuts (auto) (2.0-8.3) x10*3/uL Absolute Nucleated RBC (0.0-0.012) X10*3/uL Nucleated RBC % (auto) (0.0-0.2) /100WBC PT (10.0-13.1) SEC INR (0.9-1.1) APTT (26.0-36.4) SEC Sodium (135-145) mmol/L Potassium (3.3-5.1) mmol/L Chloride (96-108) mmol/L Carbon Dioxide (22-29) mmol/L Anion Gap (12-20) BUN (9-16) mg/dL Creatinine (0.5-1.4) mg/dL Estim Creat Clear Calc Estimated GFR Random Glucose (60-115) mg/dL Calcium (8.4-10.2) mg/dL Magnesium (1.6-2.6) mg/dL Total Bilirubin (0.0-1.0) mg/dL AST (5-37) U/L ALT (0-40) U/L Alkaline Phosphatase (39-117) U/L Total Protein (6.5-8.0) g/dL Albumin (3.5-5.0) g/dL Urine Color Yellow Urine Appearance Clear Urine pH 5.5 (5.0-9.0) Ur Specific Ringling <= 1.005 (1.005-1.025) Urine Protein Negative (Neg-Trace) mg/dL Urine Glucose (UA) Negative (Negative) mg/dL Urine Ketones Negative (Negative) mg/dL Urine Blood Negative (Negative) Urine Nitrite Negative (Negative) Ur Leukocyte Esterase Negative (Negative) Salicylates (15-30) mg/dL Urine Opiates Screen Not Detected (Not Detect) Urine Fentanyl Screen Not Detected (Not Detect) Acetaminophen (<30) mcg/mL Ur Barbiturates Screen Not Detected (Not Detect) Ur Phencyclidine Scrn Not Detected (Not Detect) Ur Amphetamines Screen Not Detected (Not Detect) U Benzodiazepines Scrn Not Detected (Not Detect) Urine Cocaine Screen Not Detected (Not Detect) U Marijuana (THC) Screen Not Detected (Not Detect) Ethyl Alcohol mg/dL COVID-19 (TRAY) Negative (Negative) COVID-19 Clin Com See Note 06/19/22 06/19/22 06/19/22 Range/Units 03:20 03:20 03:20 WBC 6.2 (4.8-10.8) X10*3/uL RBC 4.59 L (4.60-5.80) X10*6/uL Hgb 15.3 (14.0-18.0) g/dl Hct 42.7 (42.0-52.0) % MCV 93.0 (80.0-98.0) fL MCH 33.3 H (27.0-33.0) pg MCHC 35.8 (31.0-36.0) g/dl RDW 11.9 (11.0-16.0) % Plt Count 195 (160-400) X10*3/uL MPV 8.7 L (9.4-12.4) fL Immature Gran % (Auto) 0.3 (0.0-0.4) % Neut % (Auto) 49.0 (45-73) % Lymph % (Auto) 42.0 H (20-40) % [place] % (Auto) 7.0 (2-11) % Eos % (Auto) 1.5 (0-4) % Baso % (Auto) 0.2 (0-2) % Lymph # (Auto) 2.6 (1.2-4.9) X10*3/uL [place] # (Auto) 0.4 (0.1-1.2) X10*3/uL Eos # (Auto) 0.1 (0.0-0.4) X10*3/uL Baso # (Auto) 0.0 (0.0-0.2) X10*3/uL Abs Immat Gran (auto) 0.02 (0.00-0.03) X10*3/uL Absolute Neuts (auto) 3.0 (2.0-8.3) x10*3/uL Absolute Nucleated RBC 0.000 (0.0-0.012) X10*3/uL Nucleated RBC % (auto) 0.0 (0.0-0.2) /100WBC PT (10.0-13.1) SEC INR (0.9-1.1) APTT (26.0-36.4) SEC Sodium 139 (135-145) mmol/L Potassium 4.4 (3.3-5.1) mmol/L Chloride 106 (96-108) mmol/L Carbon Dioxide 21 L (22-29) mmol/L Anion Gap 16 (12-20) BUN 11 (9-16) mg/dL Creatinine 0.72 (0.5-1.4) mg/dL Estim Creat Clear Calc 153.5 Estimated GFR > 60 Random Glucose 96 (60-115) mg/dL Calcium 9.5 (8.4-10.2) mg/dL Magnesium 2.0 (1.6-2.6) mg/dL Total Bilirubin 0.4 (0.0-1.0) mg/dL AST 23 (5-37) U/L ALT 29 (0-40) U/L Alkaline Phosphatase 73 (39-117) U/L Total Protein 7.3 (6.5-8.0) g/dL Albumin 4.5 (3.5-5.0) g/dL Urine Color Urine Appearance Urine pH (5.0-9.0) Ur Specific Ringling (1.005-1.025) Urine Protein (Neg-Trace) mg/dL Urine Glucose (UA) (Negative) mg/dL Urine Ketones (Negative) mg/dL Urine Blood (Negative) Urine Nitrite (Negative) Ur Leukocyte Esterase (Negative) Salicylates < 5.0 L (15-30) mg/dL Urine Opiates Screen (Not Detect) Urine Fentanyl Screen (Not Detect) Acetaminophen < 1 (<30) mcg/mL Ur Barbiturates Screen (Not Detect) Ur Phencyclidine Scrn (Not Detect) Ur Amphetamines Screen (Not Detect) U Benzodiazepines Scrn (Not Detect) Urine Cocaine Screen (Not Detect) U Marijuana (THC) Screen (Not Detect) Ethyl Alcohol 69 mg/dL COVID-19 (TRAY) (Negative) COVID-19 Clin Com 06/19/22 Range/Units 03:20 WBC (4.8-10.8) X10*3/uL RBC (4.60-5.80) X10*6/uL Hgb (14.0-18.0) g/dl Hct (42.0-52.0) % MCV (80.0-98.0) fL MCH (27.0-33.0) pg MCHC (31.0-36.0) g/dl RDW (11.0-16.0) % Plt Count (160-400) X10*3/uL MPV (9.4-12.4) fL Immature Gran % (Auto) (0.0-0.4) % Neut % (Auto) (45-73) % Lymph % (Auto) (20-40) % [place] % (Auto) (2-11) % Eos % (Auto) (0-4) % Baso % (Auto) (0-2) % Lymph # (Auto) (1.2-4.9) X10*3/uL [place] # (Auto) (0.1-1.2) X10*3/uL Eos # (Auto) (0.0-0.4) X10*3/uL Baso # (Auto) (0.0-0.2) X10*3/uL Abs Immat Gran (auto) (0.00-0.03) X10*3/uL Absolute Neuts (auto) (2.0-8.3) x10*3/uL Absolute Nucleated RBC (0.0-0.012) X10*3/uL Nucleated RBC % (auto) (0.0-0.2) /100WBC PT 11.3 (10.0-13.1) SEC INR 1.0 (0.9-1.1) APTT 32.9 (26.0-36.4) SEC Sodium (135-145) mmol/L Potassium (3.3-5.1) mmol/L Chloride (96-108) mmol/L Carbon Dioxide (22-29) mmol/L Anion Gap (12-20) BUN (9-16) mg/dL Creatinine (0.5-1.4) mg/dL Estim Creat Clear Calc Estimated GFR Random Glucose (60-115) mg/dL Calcium (8.4-10.2) mg/dL Magnesium (1.6-2.6) mg/dL Total Bilirubin (0.0-1.0) mg/dL AST (5-37) U/L ALT (0-40) U/L Alkaline Phosphatase (39-117) U/L Total Protein (6.5-8.0) g/dL Albumin (3.5-5.0) g/dL Urine Color Urine Appearance Urine pH (5.0-9.0) Ur Specific Ringling (1.005-1.025) Urine Protein (Neg-Trace) mg/dL Urine Glucose (UA) (Negative) mg/dL Urine Ketones (Negative) mg/dL Urine Blood (Negative) Urine Nitrite (Negative) Ur Leukocyte Esterase (Negative) Salicylates (15-30) mg/dL Urine Opiates Screen (Not Detect) Urine Fentanyl Screen (Not Detect) Acetaminophen (<30) mcg/mL Ur Barbiturates Screen (Not Detect) Ur Phencyclidine Scrn (Not Detect) Ur Amphetamines Screen (Not Detect) U Benzodiazepines Scrn (Not Detect) Urine Cocaine Screen (Not Detect) U Marijuana (THC) Screen (Not Detect) Ethyl Alcohol mg/dL COVID-19 (TRAY) (Negative) COVID-19 Clin Com Discharge Plan Discharge Clinical Impression: Suicide attempt by hanging Patient Disposition: Still a Patient Prescriptions: No Action No Known Home Meds Interventions: [place]-Suicide Risk Severity Scale Last Done: 06/19/22 06:07 Dictated By:Noe Bai MDSigned By:<Electronically signed by Noe Bai MD>06/19/22 0706 Attending physician on discharge: Zeus Kay DS: Diagnosis Discharge Diagnosis (1) Onset of alcohol-induced mood disorder during intoxication: Status: Resolved (2) Hanging, undetermined whether accidentally or purposely inflicted: Status: Inactive DS: Medications Discharge Medications Home Medications: Home Medications Medication Instructions Recorded Confirmed No Known Home Meds 06/19/22 06/19/22 Mental Status Exam Mental Status Exam Patient Appearance: Well Grooomed Patient Orientation: Person, Place, Time and Situation Level of Consciousness: Awake and Alert Patient Behavior: Appropriate Mood Description: Calm, Anxious and Apprehensive Affect Description: Appropriate, Constricted and Apprehensive Ability to Follow Directions: Good Speech Pattern: Clear Memory Description: Intact and Recent Impaired (Some blackout periods from when he had been drinking) Hallucinations: None Delusions: Not Present Thought Process: Intact and Goal Oriented Thought Content: positive for Linear, negative for Suicidal Ideation or negative for Homicidal Ideation Judgement: Fair Judgement and Insight: Patient future oriented he and his partner had spoken things appear to be is smooth over patient was future oriented denied that he had made a suicide attempt but could not really explain his behavior prior to admission there was no significant injury he denied any ruminations preoccupations he denied feeling concerned that his partner was going to leave him she did express that they were committed to each other and he was committed to her and their relationship he stated he did not feel overly concerned regarding recently having been contacted that he might be a father. He was somewhat defended and did not appear to be psychologically minded again urged consideration of crisis team or come to the emergency room if feeling unsafe Data Data Completed and Pending Completed studies during hospitalization [Text1]: CBC Chem profile were unremarkable Imaging Diagnostic Imaging Impressions Head/Neck CTA 06/19/22 02:53 IMPRESSION: * No evidence of dissection. * No occlusion or hemodynamically significant stenosis within the extracranial or intracranial arterial vasculature. DS: Summary Hospital Course Hospital Course: [place] [address] Psychiatry Admission Note (In)Signed Patient: Alberto Salinas EMR#: [id number]: [id number]:[id number]/Sex: 51 / MLoc:[id number]: Zeus Kay MD cc: ~ HPI Date of Service: 06/21/22 Chief Complaint: reported Suicide Attempts by Hanging Sources of Information: patient interviewed and crisis/core team assessment reviewed HPI Subjective Notes: [place] Warning and Section 12B Narrative: The patient is a 48-year-old male who reportedly was found by his girlfriend of 6 years who he lives with to be hanging in the basement and unconscious. The patient denies that he made a suicide attempt he states he had 7 years Alesia resolution to stop drinking stop smoking and that he had drank too much and was doing things in the basement involving his game room and reportedly became entangled but the patient has a blackout for a period of time. There had been some argument earlier in the night with his girlfriend but he denies ongoing depressive symptoms or thoughts of self-harm. He was brought in by the police and ambulance there were carbajal on his neck but on examination and CT scan no significant physical findings were noted. The patient states that he supports his girlfriend and her 2 children he works fuel truck driver he does admit to binge drinking but denies ongoing blackouts withdrawal symptoms or other behavioral problems or difficulties secondary to this. He does not really have a clear explanation for what happened but denies that he was having suicidal thoughts or the present time since admission has had suicidal thoughts he denies any psychiatric history see sw note Past Psychiatric History: denies Medical Evaluation Reviewed: Yes ct and physical findings negative [facility] Family History: Unknown at this time Social History: Patient works as a fuel truck driver local deliveries lives with his girlfriend Cassy in of 6 years for He does state that her former had suicided Substance History: binge drinking alcohol denies hx of blackouts dui or detox Diagnostics Vital Signs (24Hr): Vital Signs - 24 hr 06/20/22 13:12 06/20/22 16:43 06/20/22 16:47 Temperature 98.4 F 97.8 F Pulse Rate 70 75 Respiratory Rate 15 16 Blood Pressure 126/69 145/83 H 143/80 H Pulse Oximetry 98 98 Oxygen Delivery Method Room Air Room Air 06/20/22 18:00 06/21/22 08:45 Temperature 97.8 F 97.7 F Pulse Rate 72 79 Respiratory Rate 16 18 Blood Pressure 140/79 H 139/69 Pulse Oximetry 96 95 Oxygen Delivery Method Room Air Room Air BMI result Body Mass Index 31.6 Labs Results: 06/19/22 03:20 document embedded image 06/19/22 03:20 document embedded image Labs: Laboratory Results - last 48 hr 06/21/22 06/21/22 06/21/22 08:53 08:53 08:53 Estimat Average Glucose 100 Hemoglobin A1c % 5.1 Triglycerides 202 Cholesterol 231 LDL Cholesterol, Calc 145 HDL Cholesterol 46 Vitamin B12 545 Folate 13.2 TSH 2.84 Free T4 0.95 Imaging Radiology Impressions: ITS Impressions Head/Neck CTA 06/19/22 02:53 IMPRESSION: * No evidence of dissection. * No occlusion or hemodynamically significant stenosis within the extracranial or intracranial arterial vasculature. Meds/Allergies Meds Home Medications Medication Instructions Recorded Confirmed Type No Known Home Meds 06/19/22 06/19/22 History Allergies Allergies Allergy/AdvReac Type Severity Reaction Status Date / Time No Known Allergies Allergy Unverified 03/05/20 15:03 [No Known Allergies*] Mental Status Exam Mental Status Exam Patient Appearance: Well Grooomed Patient Orientation: Person, Place, Time and Situation Level of Consciousness: Awake and Alert Patient Behavior: Appropriate Mood Description: Calm, Anxious and Apprehensive Affect Description: Appropriate, Constricted and Apprehensive Ability to Follow Directions: Good Speech Pattern: Clear Memory Description: Recent Impaired Hallucinations: None Delusions: Not Present Thought Process: Intact and Evasive Thought Content: positive for Linear, negative for Suicidal Ideation or negative for Homicidal Ideation Judgement: Fair Judgement and Insight: pt guarded ? evasive vs true blackout denies plan or intent for harm to self or others unclear trigger or if behavoir was intentional no plan Assessment & Plan Assessment & Plan (1) Onset of alcohol-induced mood disorder during intoxication: Status: Acute Code(s): F10.929 - Alcohol use, unspecified with intoxication, unspecified; F10.94 - Alcohol use, unspecified with alcohol-induced mood disorder (2) Hanging, undetermined whether accidentally or purposely inflicted: Status: Acute Code(s): T71.164A - Asphyxiation due to hanging, undetermined, initial encounter Plan s/p recent reported hanging event no clear sequelae pt denies plan or intent partner denies current concern explained current legal status although concerning re event does not appear intentional clarify home sityuation financial work etc refusing referrals Urine drug screen was negative unremarkable labs clarify home situation Patient educated on: substance abuse Informed Consent: further education needed Reason for continued inpatient stay Substantial Risk for: harm to self Statement Statement: I have reviewed the history and physical and performed a pertinent examination on my patient. No changes have occurred unless specified. If the History and Physical was not performed prior to admission, the Hospitalist's service will be consulted for completing the admission physical. Hospital course [facility] voluntary and then the patient placed a 3 day notice. ER evaluation reviewed patient seen and discussion also with the patient's long-term partner. With the patient's mood on the unit was somewhat anxious with a full affect cooperative engaged in groups was seen in milieu. No shortness of breath chest pain or physical symptoms noted. Vital signs were stable. Patient related history of being fuel truck driver and had found that a few months previous that he was allegedly a father to someone from his past. He had kept this from his girlfriend long-term partner he stated be because he had not wanted to cause dissension during holidays and when she had found out the and had an argument. The patient had drank heavily and the patient was later found by his partner intoxicated and his neck was leaning against a clothes line. The patient himself says denied that he had been feeling depressed generally overly stressed rule that he had had suicidal thoughts. He did admit to having intermittent binge drinking problem and the patient's partner felt that the patient had set things up as a play for sympathy from her id known that her ex- in the past had from a suicide attempt by hanging. She stated generally they got along well the patient did not exhibit depressive episodes suicidal gestures or make suicidal statements. The patient and his partner spoke prior to discharge both he and his partner were eager to have him come home strongly urged patient to be seen counseling although he denied severe stress from finding and recently that the an ex from his past had test texted him that he was a father. Patient showed a full affect he was future oriented prior to discharge The patient was referred to [facility] in [facility] prior to discharge patient denied any past suicide attempt or psychiatric care He was open to seeing his drinking perhaps as problematic but he did seem defended regarding needing any supports or help him and his girlfriend/partner did reinforce that generally the patient was fairly high functioning could be manipulative and provocative at times but not changer dangerous behavior he did seem safe for discharge was planning on returning to work and his partner was looking forward to him coming home there did not appear to be any significant dissension between them. He was given the number of the crisis team number for options for referrals of needed for psychiatric care and I also discussed the option of seeing his EAP and consideration of aa meeting We did discuss potential dangerous effects of drinking particularly when under stress including mood dress and suicide risks No abnormal physical findings patient was pleasant cooperative during his stay He had a difficult time being open regarding details of what brought him to the hospital in the groups or discussion with others he was forthcoming to some significant degree with this radio script writer and discussed with him prior to discharge that everyone at times can come across something that they have a difficult time with and may need some additional support Time spent discussing smoking cessation with patient: 3 to 10 minutes Status at Discharge Cognitive/behavioral status at discharge: The patient was alert future oriented cooperative the time of discharge somewhat provocative at times with women on the unit Functional status at discharge: independent ambulation Overall status at discharge: patient is back to baseline Time Spent with Patient Time attestation: Total time managing care of this patient today ____ minutes. Time spent: Greater than 30 minutes Specific discharge activities: Discussion of safety affects of alcohol consideration of psychotherapy to help with recent stressors Discharge Plan Discharge Anticipated Discharge Date/Time: 06/22/22 11:00 Patient Disposition: Home, Self-Care Discharge Diagnosis: alcohol intoxication induced mood dx adjustment disorder with mixed emotional state reported hanging type event no physical damage denies intention nicotine addiction refusing medication for this Referrals: [facility] [Provider Group] - 1 Week (may use walk in clinic as needed.) Physician,None [Primary Care Provider] - 1 Week Discharge Medications: No Action No Known Home Meds Discharge Orders: Discharge Order (Routine); Ordered 06/22/22 Ordered By: Zeus Kay Diet: Advance to usual diet Activity on Discharge: As tolerated Stand Alone Forms: Patient Portal Discharge page, Community Support Care Plan Goals: stabilize mood you are denying self harm maintain safety avoid alcohol binging Health Concerns: adjustment disorder with mixed emotions binge drinking with altered mental state and depression ? self harm Plan of Treatment: suggest you call [employer] for your company you are refusing counseling referral suggest you consider AA for binge drinking avoid drinking under stress call crisis team if you need help [phone] or Assessment: pt appears stable future oriented partner in agreement Discharge Date/Time: 06/22/22 12:15
== END 2022-06-22 12:15 | disposition home or self-care (01) | DRG 775 ==
LOC: HO.ED 06-19 04:21 → HO.PADLT16 06-20 13:39
PROVIDERS: Clinical Nurse Specialist Psychiatric/Mental Health, Adult; Admitting Provider Psychiatry & Neurology Psychiatry; Emergency Provider Emergency Medicine Emergency Medical Services; Visit Provider Psychiatry & Neurology Psychiatry
DX: F10.94 Alcohol use, unspecified with alcohol-induced mood disorder (principal); T71.164A Asphyxiation due to hanging, undetermined, initial encounter; F10.929 Alcohol use, unspecified with intoxication, unspecified; F17.210 Nicotine dependence, cigarettes, uncomplicated; Z20.822 Contact with and (suspected) exposure to COVID-19; Z71.6 Tobacco abuse counseling; Y90.3 Blood alcohol level of 60-79 mg/100 ml
CPT/HCPCS: 36415; 70496; 70498; 80053; 80061; 80143; 80179; 80307; 81003; 82077; 82607; 82746; 83036; 83735; 84439; 84443; 85025; 85610; 85730; 87635; 99285; Q9967; S9485

== ENCOUNTER 2025-03-18 12:35 | Outpatient (AMB) | payer OTHER, SELFPAY ==
[2025-03-18 13:04] VITALS: BP 120/70; PULSE 98; TEMP 36.9; O2SAT 98; BMI 25.6
--- NOTE | 2025-03-18 13:04 | AM.OFFWIN_ITS ---
Intake Vital Signs 03/18/25 13:04 Height 6 ft 1 in Weight 194 lb BMI 25.6 BP 120/70 Blood Pressure Location Lt brachial Position Sitting Pulse 98 Pulse Source Pulse Oximeter Temp 98.5 F Temp Source Oral Pulse Oximetry (%) 98 Oxygen Delivery Method Room Air Intake Visit Reasons: EP Ear Pain/ blockage both sides Patient Tobacco Use Status: Current everyday Tobacco user Allergies No Known Allergies (No Known Allergies*) Allergy (Verified 03/18/25 13:09) Do you need a note to return to daycare/school/sports/work: No HPI HPI Comments History of Present Illness Details History - The patient is a 54-year-old male pres enting with ear pain and blockage, primarily affecting the right ear. - Symptoms have been present for the las t couple of weeks, with the right ear being more painful than the left. - No history of ear infections or wax ac cumulation. - Denies changes in hearing and has no h istory of diabetes. Physical Exam General: Cooperative, healthy appearing, comfortable, no acute distress and well developed Orientation: Patient oriented x3 Limitations: No limitations Head: Normal to inspection Ears: Right EAC with edema and erythema, unable to visualize tympanic membrane due to swelling; left ear with normal TM Face and sinus: Normal facial exam Neck: Normal visual inspection and Yes full ROM Respiratory: Normal respiratory effort and able to speak in complete sentences. Skin: No rashes or lesions noted Neuro: Patient oriented x3 Extremities: normal to inspection Review of Systems - Ears: Reports ear pain and blockage, d enies changes in hearing - Endocrine: Denies diabetes All systems reviewed and are unremarkable except as noted in HPI [facility] Medical History (Updated 03/18/25 @ 13:39 by Teena Jacobs PA-C) Hanging, undetermined whether accidentally or purposely inflicted Social History Household Members Other:: Girlfriend and her two boys. Housing: Apartment Do you presently have visiting nurse or other home services: No Alcohol intake: unknown Patient Tobacco Use Status: Current everyday Tobacco user Tobacco use type: Cigarette Cigarette Packs Per Day: 2 Cigarettes Per Day: 40.0 Years Smoked: 20 e-Cigarette/Vaping Use: Never Used Second Hand Smoke Exposure: Yes Substance Use Type: Caffiene service: No Sexual orientation: Straight/Heterosexual Physical Exam Vital Signs: Last Vital Signs Temp 98.5 F 03/18/25 13:04 Pulse 98 03/18/25 13:04 BP 120/70 03/18/25 13:04 Pulse Ox 98 03/18/25 13:04 Oxygen Delivery Method Room Air 03/18/25 13:04 BMI result Body Mass Index 25.6 Assessment & Plan Assessment & Plan (1) Right otitis externa: Code(s): H60.91 - Unspecified otitis externa, right ear Qualifiers: Otitis externa type: diffuse Chronicity: acute Qualified Code(s): H60.311 - Diffuse otitis externa, right ear Plan: Plan - Prescribe ear drops with steroid and antibiotic for swelling and infection. - Use ear drops four times daily. - Follow-up if symptoms persist or worsen after a week for reassessment and potential oral antibiotics. - Use ibuprofen for pain relief. Patient was informed and verbally consented to the use of an ambient scribe for clinic note documentation during this visit. Medications: New [id number] 3.5-10,000-1 mg/mL-unit/mL-% 4 drps otic (ear) right QID 10 mL 0RF 7 days Coding Level of Care Code New Pt Level 3 (24858) Diagnoses Acute diffuse otitis externa of right ear H60.311 Otitis externa type: diffuse Chronicity: acute
== END 2025-03-18 13:43 | disposition home or self-care (01) ==
PROVIDERS: Visit Provider Physician Assistant
DX: H60.311 Diffuse otitis externa, right ear (principal)